=== PATIENT | male | born 1980 | race Caucasian/White ===

== ENCOUNTER 2016-11-10 17:23 | Inpatient (IN) | payer MEDICAID ==
[~2016-11-10] VITALS: Ht 182.9 cm; Wt 64.5 kg
[2016-11-10 18:28] LABS: BASOPHILS 0.7 % (0.0-2.0); EOSINOPHILS 0.2 % (0-7); HEMATOCRIT 50.9 % (42.0-54.0); HEMOGLOBIN 18.3 g/dL (13.5-17.5); LYMPHOCYTES 44.8 % (15-50); MCH 31.4 pg (26.0-34.0); MCV 87.5 fL (80.0-100.0); MEAN PLATELET VOLUME 10.4 fL (7.4-10.4); MONOCYTES 11.2 % (2-11); NEUTROPHILS 42.1 % (40-80); PLATELET COUNT 369 10x3/uL (130-400); RBC 5.82 10x6/uL (4.20-6.10); RDW 12.4 % (11.5-14.5)
[2016-11-10 19:58] LABS: ALBUMIN 4.9 g/dL (3.4-5.0); ANION GAP 28.2 mmol/L (8-16); BILIRUBIN - TOTAL 0.64 mg/dL (0.2-1.3); CALCIUM 9.5 mg/dL (8.5-10.1); CARBON DIOXIDE 15.2 mmol/L (21.0-32.0); CREATININE - SERUM 1.5 mg/dL (0.6-1.3); POTASSIUM - SERUM 4.4 mmol/L (3.5-5.1); PROTEIN - SERUM 8.7 g/dL (6.4-8.2)
[2016-11-10 21:43] LABS: AMYLASE - SERUM 24 U/L (25-115); LIPASE 66 U/L (73-393)
[2016-11-10 23:47] LABS: HEMOGLOBIN A1C 9.9 % (4.8-6.0)
[2016-11-10 23:53] LABS: MAGNESIUM - SERUM 1.7 mg/dL (1.8-2.4); PHOSPHOROUS 4.3 mg/dL (2.5-4.9)
[2016-11-10 23:54] LABS: APPEARANCE CLEAR (CLEAR); BILIRUBIN 1+ (NEGATIVE); COLOR YELLOW (YELLOW); GLUCOSE 1000 mg/dL (NEGATIVE); KETONE LARGE mg/dL (NEGATIVE); LEUKOCYTE ESTERASE TRACE (NEGATIVE); NITRITE NEGATIVE (NEGATIVE); PROTEIN 1+ mg/dL (NEGATIVE); SPECIFIC GRAVITY 1.025 (1.005-1.020); UROBILINOGEN NORMAL (NORMAL)
[2016-11-10 23:58] LABS: UDS - AMPHET NEGATIVE QUAL (NEGATIVE); UDS - BARB NEGATIVE QUAL (NEGATIVE); UDS - BENZO NEGATIVE QUAL (NEGATIVE); UDS - COCAINE NEGATIVE QUAL (NEGATIVE); UDS - METH NEGATIVE QUAL (NEGATIVE); UDS - OPIATE POSITIVE QUAL (NEGATIVE); UDS - PCP NEGATIVE QUAL (NEGATIVE); UDS - THC POSITIVE QUAL (NEGATIVE)
[2016-11-11] VITALS: BP 110/64
[2016-11-11 00:02] LABS: RED CELLS - URINE 0-5 /hpf (0-5); WHITE CELLS - URINE 0-5 /hpf (0-5)
[2016-11-11 00:03] LABS: AMORPHOUS SEDIMENT <1+ /lpf (NONE SEEN); BACTERIA MODERATE /hpf (NONE SEEN); EPITHELIAL CELLS OCC /hpf (0-5); GRANULAR CAST 0-5 /lpf (NONE SEEN); MUCUS <1+ /lpf (NONE SEEN); WAXY CAST 0-5 /lpf (NONE SEEN)
[2016-11-11 01:06] VITALS: BP 96/58; BMI 18.7; BMI 20.4
--- NOTE | 2016-11-11 02:33 | NUR ---
IVF NS @ 150ML/HR UP AND INFUSING TO RIGHT A/C. PT AWAKENS EASILY. ADMISSION ASSESSMENT COMPLETED. HISTORY REVIEWED. HOME MEDS NEED FURTHER INFO IN AM.
[2016-11-11 04:00] VITALS: BP 108/76
[2016-11-11 05:53] LABS: BASOPHILS 0.2 % (0.0-2.0); EOSINOPHILS 0.1 % (0-7); HEMATOCRIT 44.8 % (42.0-54.0); HEMOGLOBIN 16.1 g/dL (13.5-17.5); IMMATURE GRANULOCYTES 0.6 % (0-5); LYMPHOCYTES 24.9 % (15-50); MCH 31.4 pg (26.0-34.0); MCHC 35.9 g/dL (31.0-37.0); MCV 87.3 fL (80.0-100.0); MEAN PLATELET VOLUME 10.7 fL (7.4-10.4); MONOCYTES 10.1 % (2-11); NEUTROPHILS 64.1 % (40-80); PLATELET COUNT 318 10x3/uL (130-400); RBC 5.13 10x6/uL (4.20-6.10); RDW 12.3 % (11.5-14.5); WBC 10.9 10x3/uL (4.8-10.8)
[2016-11-11 06:23] LABS: ANION GAP 19.4 mmol/L (8-16); CREATININE - SERUM 1.3 mg/dL (0.6-1.3); POTASSIUM - SERUM 4.2 mmol/L (3.5-5.1)
[2016-11-11 06:24] LABS: CARBON DIOXIDE 21.8 mmol/L (21.0-32.0)
--- NOTE | 2016-11-11 07:25 | NUR ---
PT LAYING DOWN IN BED SLEEPING NO S/S DISTRESS NOTED WILL CONT TO MONITOR.
[2016-11-11 08:05] VITALS: BP 114/69
--- NOTE | 2016-11-11 08:36 | NUR ---
TRIED TO RESITE PT PIV. NO SUCCESS. PT HAS R AC PIV THAT IS PATENT BUT WHEN HE BENDS HIS ARM IT BEEPS. TRIED TO RESITE PER PT REQUEST.
[2016-11-11] MEDS ORDERED: LANTUS SOL100 UNIT/1 SC (09:36)
[2016-11-11] MEDS ORDERED: HUMALOG MIX 50/53 ML SC (09:36)
[2016-11-11 13:11] VITALS: Ht 182.9 cm; Wt 64.5 kg
[2016-11-11 15:22] VITALS: BP 118/75
--- NOTE | 2016-11-11 20:28 | NUR ---
PT RESTING IN BED WITH EYES CLOSED. IVF NS @ 150ML/HR INFUSING TO RIGHT A/C. NONLABORED RESPIRATIONS ON ROOM AIR. SEE SHIFT ASSESSMENT. CPOC.
--- NOTE | 2016-11-11 21:18 | NUR ---
FSBS 306, SLIDING SCALE AND SCHEDULED LANTUS ADMINISTERED. PT ALSO HAD SMALL NOSE BLEED, ICE PROVIDED. STOPPED AFTER A FEW MINUTES. WILL MONITOR.
[2016-11-11 22:07] VITALS: BP 132/75
--- NOTE | 2016-11-12 00:28 | NUR ---
FSBS 122, NEW BAG OF IVF HUNG. PT RESTING. NO NEEDS VOICED.
[2016-11-12 01:57] VITALS: BP 125/74
[2016-11-12 05:26] VITALS: BP 130/49
[2016-11-12 06:12] LABS: BASOPHILS 0.3 % (0.0-2.0); HEMATOCRIT 36.3 % (42.0-54.0); HEMOGLOBIN 13.4 g/dL (13.5-17.5); IMMATURE GRANULOCYTES 0.3 % (0-5); LYMPHOCYTES 45.8 % (15-50); MCH 32.4 pg (26.0-34.0); MCHC 36.9 g/dL (31.0-37.0); MCV 87.7 fL (80.0-100.0); MEAN PLATELET VOLUME 10.3 fL (7.4-10.4); MONOCYTES 11.3 % (2-11); NEUTROPHILS 41.3 % (40-80); RBC 4.14 10x6/uL (4.20-6.10); RDW 12.2 % (11.5-14.5)
[2016-11-12 06:38] LABS: PLATELET COUNT 230 10x3/uL (130-400); WBC 5.8 10x3/uL (4.8-10.8)
[2016-11-12 06:48] LABS: CARBON DIOXIDE 21.7 mmol/L (21.0-32.0); CHLORIDE - SERUM 103 mmol/L (98-107); MAGNESIUM - SERUM 1.3 mg/dL (1.8-2.4); SODIUM 137 mmol/L (136-145); eGFR NON AFRICAN AMERICAN 89 mL/min (90-120)
[2016-11-12 06:49] LABS: CALC OSMOLALITY 270 mosm/kg (275-300); PHOSPHOROUS 2.9 mg/dL (2.5-4.9); UREA NITROGEN 9 mg/dL (7-18)
[2016-11-12 06:50] LABS: GLUCOSE 58 mg/dL (74-106); POTASSIUM - SERUM 2.9 mmol/L (3.5-5.1)
--- NOTE | 2016-11-12 07:00 | NUR ---
ASSESSMENT DONE. PT SLEEPING. EASILY AWAKEN. LAB CALLED GLUCOSE OF 58. PT GIVEN ORANGE JUICE TO DRINK. ALSO POTASSIUM LOW AT 2.9, AND MAG LOW AT 1.3. WILL FOLLOW EP. PT A/O. DENIES NEEDS AT THIS TIME. CALL LIGHT WITH IN REACH. WILL CONT. TO MONITOR.
[2016-11-12 08:00] VITALS: BP 109/71
--- NOTE | 2016-11-12 09:18 | NUR ---
RESTS WITH EYES CLOSED. IV PATENT. CALL LIGHT IN REACH. WILL CONT. PLAN OF CARE.
--- NOTE | 2016-11-12 10:45 | NUR ---
PT SLEEPING. EASILY AROUSED. K+ AND MAG GIVE PER EP. PT DENIES NEEDS AT THIS TIME. NO DISTRESS NOTED. CALL LIGHT WITH IN REACH. WILL CONT. TO MONITOR.
[2016-11-12 11:23] VITALS: BP 94/55
[2016-11-12] MEDS ORDERED: K-DUR20 MEQ PO (12:07)
[2016-11-12] MEDS ORDERED: LANTUS INSULIN10 ML SC (12:07)
--- NOTE | 2016-11-12 14:00 | NUR ---
D/C INSTRUCTIONS GIVEN TO PT WITH RX'S. PT VERBALIZED UNDERSTANDING. IV REMOVED. DECLINED W/C. PT WISHES TO WALK OUT. PT. D/C HOME VIA PRIVATE VEHICLE.
--- NOTE | 2016-11-12 14:46 | NUR ---
Patient Name: RIANA WEIR Admission Status: ER Accout number: [id number] Admission Date: 11-10-2016 : 1980 Admission Diagnosis: Attending: RORO Current LOS: 2 Anticipated DC Date: 11-12-2016 Planned Disposition: Home Primary Insurance: [employer] [facility] Discharge Planning Comments: * Is the patient Alert and Oriented? Yes 0 * How many steps to enter\exit or inside your home? 16 0 * PCP DR. GOMES, BUT HAVE NOT SEEN HIM IN QUITE SOME TIME 0 * Pharmacy [facility] 0 * Preadmission Environment Home with Family 0 * ADLs Independent 0 * Equipment Glucometer 0 * Other Equipment NO MEDICAL EQUIPMENT PROVIDER PREFERENCE 0 * List name and contact numbers for known caregivers / representatives who currently or will assist patient after discharge: SAMIA WEIR, SPOUSE, 0 * Community resources currently utilized None 0 * Please name any agencies selected above. NONE 0 * Additional services required to return to the preadmission environment? No 0 * Can the patient safely return to the preadmission environment? Yes 0 * Has this patient been hospitalized within the prior 30 days at any hospital? No 0 CM SPOKE TO STUDENT NURSE WHO WAS CONCERNED THAT AFTER SPEAKING WITH PT, SHE DOES NOT BELIEVE THAT PT HAS DIABETIC SUPPLIES AT HOME. CM MET WITH PT IN ROOM TO DISCUSS DISCHARGE PLANNING AND NEEDS. PT REPORTS LIVING AT HOME INDEPENDENTLY WITH HIS MOM AND . PT HAS A GLUCOMETER WITH NO MEDICAL EQUIPMENT PROVIDER PREFERENCE. PT HAS NO OUTSIDE SERVICES ASSISTING IN THE HOME. CM DISCUSSED AVAILABILITY OF HOME HEALTH, REHAB SERVICES AND MEDICAL EQUIPMENT. PT DENIES DISCHARGE NEEDS, REPORTS HIS WILL PICK HIM UP FOR DISCHARGE HOME. PT REPORTS HAVING GLUCOMETER AND STRIPS; PT REPORTS HE DOES NOT USE THEM LIKE HE SHOULD TO MONITOR HIS CONDITION AND REPORTS BEING INSULIN DIABETIC FOR ABOUT 7 YEARS. PT REPORTS HE MAY BE LOOKING FOR A NEW DOCTOR. CM PROVIDED PT WITH CONTACT INFORMATION FOR [employer]EN[employer] AND [employer] [facility]. PT DENIES DISCHARGE NEEDS. Recreation Supervisor: Alfa Kelley
== END 2016-11-12 14:00 | disposition home or self-care (01) | DRG 638 ==
LOC: D.ER 17:23 → D.M2 23:37
PROVIDERS: Emergency Medicine; Physician Assistant; ADMIT Family Medicine Adult Medicine
DX: E13.10 Other specified diabetes mellitus with ketoacidosis without coma (principal); F17.203 Nicotine dependence unspecified, with withdrawal; Z79.4 Long term (current) use of insulin; R51 Headache; E78.5 Hyperlipidemia, unspecified; F12.90 Cannabis use, unspecified, uncomplicated; Z91.14 Patient's other noncompliance with medication regimen; D72.829 Elevated white blood cell count, unspecified

== ENCOUNTER 2018-04-21 14:56 | Inpatient (IN) | payer OTHER ==
[~2018-04-21] VITALS: Ht 185.4 cm; Wt 68.0 kg
[2018-04-21] VITALS (9 sets, daily range): BP systolic 92–168; BP diastolic 42–97
[~2018-04-21 14:56] MED LIST: HUMALOG MIX 50/53 ML SC; K-DUR20 MEQ PO; LANTUS INSULIN10 ML SC; LANTUS SOL100 UNIT/1 SC
[2018-04-21 15:36] LABS: KETONE - SERUM MODERATE mg/dL (NEGATIVE)
[2018-04-21 15:49] LABS: HEMATOCRIT 49.9 % (42.0-54.0); HEMOGLOBIN 16.7 g/dL (13.5-17.5); MCH 31.9 pg (26.0-34.0); MCHC 33.5 g/dL (31.0-37.0); MCV 95.4 fL (80.0-100.0); MEAN PLATELET VOLUME 11.6 fL (7.4-10.4); PLATELET COUNT 395 10x3/uL (130-400); RBC 5.23 10x6/uL (4.20-6.10); RDW 12.6 % (11.5-14.5); WBC 24.8 10x3/uL (4.8-10.8)
[2018-04-21 16:06] LABS: ALBUMIN 3.8 g/dL (3.4-5.0); ALKALINE PHOSPHATASE 103 U/L (46-116); ALT (SGPT) 33 U/L (10-68); BILIRUBIN - TOTAL 0.63 mg/dL (0.2-1.3); CALCIUM 8.2 mg/dL (8.5-10.1); CREATININE - SERUM 2.7 mg/dL (0.6-1.3); MAGNESIUM - SERUM 2.4 mg/dL (1.8-2.4); PROTEIN - SERUM 7.3 g/dL (6.4-8.2); SODIUM 122 mmol/L (136-145); UREA NITROGEN 37 mg/dL (7-18); eGFR NON AFRICAN AMERICAN 28 mL/min (90-120)
[2018-04-21 16:11] LABS: CHLORIDE - SERUM 83 mmol/L (98-107); POTASSIUM - SERUM 7.1 mmol/L (3.5-5.1)
[2018-04-21 16:12] LABS: CARBON DIOXIDE 2.9 mmol/L (21.0-32.0)
[2018-04-21 16:20] LABS: CALC OSMOLALITY 305 mosm/kg (275-300); GLUCOSE 1014 mg/dL (74-106); LYMPHOCYTES 8 % (15-50); MONOCYTES 7 % (2-11); NEUTROPHILS 82 % (40-80)
[2018-04-21 16:21] LABS: PLATELET ESTIMATE NORMAL
[2018-04-21 17:16] LABS: UDS - AMPHET NEGATIVE QUAL (NEGATIVE); UDS - BARB NEGATIVE QUAL (NEGATIVE); UDS - BENZO NEGATIVE QUAL (NEGATIVE); UDS - COCAINE NEGATIVE QUAL (NEGATIVE); UDS - OPIATE NEGATIVE QUAL (NEGATIVE); UDS - PCP NEGATIVE QUAL (NEGATIVE); UDS - THC NEGATIVE QUAL (NEGATIVE)
[2018-04-21 17:24] LABS: APPEARANCE CLEAR (CLEAR); COLOR YELLOW (YELLOW)
[2018-04-21 17:25] LABS: BILIRUBIN NEGATIVE (NEGATIVE); GLUCOSE 1000 mg/dL (NEGATIVE); KETONE LARGE mg/dL (NEGATIVE); NITRITE NEGATIVE (NEGATIVE); PROTEIN NEGATIVE (NEGATIVE); UROBILINOGEN NORMAL (NORMAL)
[2018-04-21 17:26] LABS: BACTERIA FEW /hpf (NONE SEEN); RED CELLS - URINE 0-5 /hpf (0-5)
[2018-04-21 23:16] LABS: ANION GAP 17.3 mmol/L (8-16); CALCIUM 7.4 mg/dL (8.5-10.1); CARBON DIOXIDE 18.7 mmol/L (21.0-32.0); CREATININE - SERUM 1.3 mg/dL (0.6-1.3); MAGNESIUM - SERUM 1.5 mg/dL (1.8-2.4)
[2018-04-22] VITALS (10 sets, daily range): BP systolic 123–158; BP diastolic 69–98; Ht 185.4 cm; Wt 68.0 kg
[2018-04-22 03:21] LABS: BASOPHILS 0.1 % (0-2); EOSINOPHILS 0 % (0-7); HEMOGLOBIN 13.5 g/dL (13.5-17.5); IMMATURE GRANULOCYTES 0.3 % (0-5); MCH 31.3 pg (26.0-34.0); MCHC 36.7 g/dL (31.0-37.0); MEAN PLATELET VOLUME 9.9 fL (7.4-10.4); MONOCYTES 10.1 % (2-11); NEUTROPHILS 75.5 % (40-80); RBC 4.31 10x6/uL (4.20-6.10)
[2018-04-22 03:24] LABS: WBC 14.6 10x3/uL (4.8-10.8)
[2018-04-22 03:25] LABS: HEMATOCRIT 36.8 % (42.0-54.0); MCV 85.4 fL (80.0-100.0); PLATELET COUNT 223 10x3/uL (130-400)
[2018-04-22 04:00] LABS: ALBUMIN 2.9 g/dL (3.4-5.0); ALKALINE PHOSPHATASE 60 U/L (46-116); ALT (SGPT) 19 U/L (10-68); BILIRUBIN - TOTAL 0.49 mg/dL (0.2-1.3); CALC OSMOLALITY 282 mosm/kg (275-300); CALCIUM 7.1 mg/dL (8.5-10.1); CARBON DIOXIDE 22.2 mmol/L (21.0-32.0); CHLORIDE - SERUM 108 mmol/L (98-107); CREATININE - SERUM 1.1 mg/dL (0.6-1.3); GLUCOSE 220 mg/dL (74-106); POTASSIUM - SERUM 4.6 mmol/L (3.5-5.1); PROTEIN - SERUM 5.3 g/dL (6.4-8.2); SODIUM 136 mmol/L (136-145); UREA NITROGEN 25 mg/dL (7-18); eGFR NON AFRICAN AMERICAN 79 mL/min (90-120)
[2018-04-22 12:21] LABS: CALCIUM 7.8 mg/dL (8.5-10.1); CHLORIDE - SERUM 104 mmol/L (98-107); POTASSIUM - SERUM 4.4 mmol/L (3.5-5.1); SODIUM 137 mmol/L (136-145); UREA NITROGEN 21 mg/dL (7-18); eGFR NON AFRICAN AMERICAN 88 mL/min (90-120)
[2018-04-22 12:22] LABS: CALC OSMOLALITY 287 mosm/kg (275-300); GLUCOSE 295 mg/dL (74-106)
[2018-04-22 15:05] LABS: ANION GAP 19.8 mmol/L (8-16); CALCIUM 7.7 mg/dL (8.5-10.1); CARBON DIOXIDE 16.7 mmol/L (21.0-32.0); CREATININE - SERUM 1.2 mg/dL (0.6-1.3)
[2018-04-22 15:11] LABS: POTASSIUM - SERUM 3.5 mmol/L (3.5-5.1)
[2018-04-22 17:17] LABS: CALC OSMOLALITY 284 mosm/kg (275-300); CALCIUM 7.9 mg/dL (8.5-10.1); CHLORIDE - SERUM 106 mmol/L (98-107); CREATININE - SERUM 1.1 mg/dL (0.6-1.3); GLUCOSE 166 mg/dL (74-106); POTASSIUM - SERUM 3.4 mmol/L (3.5-5.1); SODIUM 140 mmol/L (136-145); UREA NITROGEN 17 mg/dL (7-18); eGFR NON AFRICAN AMERICAN 79 mL/min (90-120)
[2018-04-23] VITALS: BP 122/79
[2018-04-23 04:00] VITALS: BP 135/69
[2018-04-23 06:01] LABS: BASOPHILS 0.2 % (0-2); EOSINOPHILS 0.8 % (0-7); HEMOGLOBIN 13.4 g/dL (13.5-17.5); IMMATURE GRANULOCYTES 0.2 % (0-5); LYMPHOCYTES 30.7 % (15-50); MCH 30.9 pg (26.0-34.0); MCHC 36.2 g/dL (31.0-37.0); MCV 85.5 fL (80.0-100.0); MEAN PLATELET VOLUME 10.6 fL (7.4-10.4); MONOCYTES 7.6 % (2-11); NEUTROPHILS 60.5 % (40-80); PLATELET COUNT 213 10x3/uL (130-400); RBC 4.33 10x6/uL (4.20-6.10); RDW 12.5 % (11.5-14.5)
[2018-04-23 06:05] LABS: WBC 8.4 10x3/uL (4.8-10.8)
[2018-04-23 06:11] LABS: CALCIUM 7.7 mg/dL (8.5-10.1); CARBON DIOXIDE 28.4 mmol/L (21.0-32.0); CHLORIDE - SERUM 106 mmol/L (98-107); GLUCOSE 126 mg/dL (74-106); POTASSIUM - SERUM 3.1 mmol/L (3.5-5.1); SODIUM 140 mmol/L (136-145)
[2018-04-23 06:15] LABS: CALC OSMOLALITY 280 mosm/kg (275-300); CREATININE - SERUM 0.8 mg/dL (0.6-1.3); UREA NITROGEN 12 mg/dL (7-18); eGFR NON AFRICAN AMERICAN > 90 mL/min (90-120)
[2018-04-23 09:24] VITALS: BP 124/77
[2018-04-23 12:59] VITALS: BP 108/70
== END 2018-04-23 16:38 | disposition home or self-care (01) | DRG 637 ==
LOC: D.ER 14:56 → D.MS 18:31 → D.EDHOLD 18:31 → D.MS 04-22 07:19
PROVIDERS: Family Medicine; Internal Medicine Nephrology
DX: E10.10 Type 1 diabetes mellitus with ketoacidosis without coma (principal); G93.40 Encephalopathy, unspecified; N17.9 Acute kidney failure, unspecified; E87.1 Hypo-osmolality and hyponatremia; Z79.4 Long term (current) use of insulin; E78.5 Hyperlipidemia, unspecified; F15.90 Other stimulant use, unspecified, uncomplicated; F17.210 Nicotine dependence, cigarettes, uncomplicated